=== PATIENT | male | born 2000 | race Two or more races ===

== ENCOUNTER 2023-07-08 11:29 | Emergency (ER) | payer OTHER, SELFPAY ==
--- NOTE | 2023-07-08 12:49 | PC.NURSE ---
No call for triage at 12:30, 12:36, and 12:49
== END 2023-07-08 12:54 | disposition left against medical advice (07) ==
PROVIDERS: Emergency Provider Emergency Medicine
DX: Z53.21 Procedure and treatment not carried out due to patient leaving prior to being seen by health care provider (principal); R10.9 Unspecified abdominal pain